=== PATIENT | male | born 1935 | race Caucasian/White ===

== ENCOUNTER → 2016-11-05 | Outpatient (CLI) | payer OTHER, BC ==
--- NOTE | 2016-11-05 14:55 | DX ---
Bilateral hands - 6 views total dated Indication: Pain. Assess for erosions. Technique: Bilateral AP, oblique, and [place]aard views. Comparison: None Findings: The bones are anatomically aligned, except for minimal subluxation of the right second and third metacarpophalangeal joints. Hook osteophytes emanate off the volar head of the second and third metacarpal heads bilaterally. Erosions involve the second and third metacarpal heads, worse on the r ight. Severe joint space narrowing involves the right second and third metacarpophalangeal joints and mild joint space narrowing involves the left second and third metacarpophalangeal joints. The interphalangeal, carpal, and radiocarpal joint spaces are relatively well preserved. Small erosio ns involve the left lunate and navicular bone and there is minimal widening of the left scapholunate interval. No chondrocalcinosis or ulnar styloid erosions. Impression: 1. 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 2. Tear versus laxity of the left scapholunate ligament.
== END ==
LOC: FIMAGING 12:18
PROVIDERS: ATTEND Physician Assistant
DX: M25.541 Pain in joints of right hand (principal); M25.542 Pain in joints of left hand; R93.6 Abnormal findings on diagnostic imaging of limbs